=== PATIENT | female | born 1950 | race Caucasian/White ===

== ENCOUNTER → 2017-01-24 | Outpatient (CLI) | payer MEDICARE ==
[2017-01-24 09:34] LABS: HEMOGLOBIN 12.9 gm/dl (12.3-15.3); RED BLOOD COUNT 4.5 M/UL (4.00-5.10); WHITE BLOOD COUNT 6.5 K/UL (4.5-11.0)
[2017-01-24 09:51] LABS: BUN/CREATININE RATIO 24 (0-10)
== END ==
LOC: LAB 09:01
PROVIDERS: Internal Medicine Hematology & Oncology
DX: R91.1 Solitary pulmonary nodule (principal); R97.8 Other abnormal tumor markers; C50.919 Malignant neoplasm of unspecified site of unspecified female breast; Z85.3 Personal history of malignant neoplasm of breast
CPT/HCPCS: 36415; 80053; 85025

== ENCOUNTER → 2017-01-25 | Outpatient (CLI) | payer MEDICARE | LOC: CT 08:48 | DX: R91.1 Solitary pulmonary nodule (principal); R97.8 Other abnormal tumor markers; C50.919 Malignant neoplasm of unspecified site of unspecified female breast; R91.8 Other nonspecific abnormal finding of lung field; Z85.3 Personal history of malignant neoplasm of breast | CPT/HCPCS: 71260; J7050; Q9962 ==

== ENCOUNTER → 2020-09-09 | Outpatient (CLI) | payer MEDICARE ==
[~2020-09-09] MED LIST: AMLODIPINE BESYL5 MG PO; BUSPIRONE HCL15 MG PO; CARVEDILOL12.5 MG PO; DITROPAN XL 5 MG5 MG PO; ESCITALOPRAM OXA5 MG PO; GABAPENTIN300 MG PO; HYDROCODON-ACE1 EAC2 PO; HYDROCODONE-AC1 EAC1 PO; LEVOTHYROXINE100 MC2 PO; LISINOPRIL2.5 MG PO; OMEPRAZOLE20 M1 PO; OXYBUTYNIN CHLOR5 MG PO; SUMATRIPTAN SU100 MG PO; VITAMIN D-40010 MCG PO
[2020-09-09 13:01] LABS: HEMOGLOBIN 14.8 gm/dl (12.3-15.3); RED BLOOD COUNT 5.08 M/UL (4.00-5.10); WHITE BLOOD COUNT 6.2 K/UL (4.5-11.0)
[2020-09-09 13:30] LABS: BUN/CREATININE RATIO 16 (0-10)
== END ==
LOC: OPSV2 11:00
PROVIDERS: Obstetrics & Gynecology
DX: Z01.818 Encounter for other preprocedural examination (principal); N81.9 Female genital prolapse, unspecified
CPT/HCPCS: 71046; 80048; 81001; 85025; 93005

== ENCOUNTER 2020-09-22 06:37 | Observation (INO) | payer MEDICARE, OTHER ==
[~2020-09-22] VITALS: Ht 152.4 cm; Wt 68.0 kg
[2020-09-22] MEDS ORDERED: LISINOPRIL2.5 MG PO (07:25)
[2020-09-22] MEDS ORDERED: LEVOTHYROXINE100 MC2 PO (07:25)
[2020-09-22] MEDS ORDERED: OXYBUTYNIN CHLOR5 MG PO (07:26)
[2020-09-22] MEDS ORDERED: CARVEDILOL12.5 MG PO (07:26)
[2020-09-22] MEDS ORDERED: GABAPENTIN300 MG PO (07:26)
[2020-09-22] MEDS ORDERED: HYDROCODONE-AC1 EAC1 PO (07:26)
[2020-09-22] MEDS ORDERED: AMLODIPINE BESYL5 MG PO (07:27)
[2020-09-22] MEDS ORDERED: BUSPIRONE HCL15 MG PO (07:27)
[2020-09-22] MEDS ORDERED: OMEPRAZOLE20 M1 PO (07:27)
[2020-09-22] MEDS ORDERED: ESCITALOPRAM OXA5 MG PO (07:28)
[2020-09-22] MEDS ORDERED: SUMATRIPTAN SU100 MG PO (07:28)
[2020-09-22 13:30] LABS: HEMOGLOBIN 14.4 gm/dl (12.3-15.3); RED BLOOD COUNT 4.94 M/UL (4.00-5.10); WHITE BLOOD COUNT 18.8 K/UL (4.5-11.0)
[2020-09-22 13:45] LABS: BUN/CREATININE RATIO 20 (0-10)
[2020-09-22] MEDS ORDERED: VITAMIN D-40010 MCG PO (17:19)
[2020-09-22] MEDS ORDERED: DITROPAN XL 5 MG5 MG PO (17:40)
[2020-09-23 05:59] LABS: HEMOGLOBIN 12.9 gm/dl (12.3-15.3); RED BLOOD COUNT 4.42 M/UL (4.00-5.10); WHITE BLOOD COUNT 11.2 K/UL (4.5-11.0)
[2020-09-23 06:22] LABS: BUN/CREATININE RATIO 19 (0-10)
[2020-09-23] MEDS ORDERED: HYDROCODON-ACE1 EAC2 PO (10:46)
== END 2020-09-23 12:16 | disposition home or self-care (01) ==
LOC: OR 06:37 → EDSTATUS 09:00 → PROG CARE 16:30
PROVIDERS: Internal Medicine Infectious Disease; ADMIT Obstetrics & Gynecology
DX: N83.292 Other ovarian cyst, left side (principal); N81.6 Rectocele; G25.70 Drug induced movement disorder, unspecified; T45.0X5A Adverse effect of antiallergic and antiemetic drugs, initial encounter; N87.9 Dysplasia of cervix uteri, unspecified; N72 Inflammatory disease of cervix uteri; N80.0 Endometriosis of uterus; N39.46 Mixed incontinence; I16.0 Hypertensive urgency; E03.9 Hypothyroidism, unspecified; I10 Essential (primary) hypertension; E05.90 Thyrotoxicosis, unspecified without thyrotoxic crisis or storm; F32.9 Major depressive disorder, single episode, unspecified; F41.9 Anxiety disorder, unspecified; E78.5 Hyperlipidemia, unspecified; G89.4 Chronic pain syndrome; K21.9 Gastro-esophageal reflux disease without esophagitis; M81.0 Age-related osteoporosis without current pathological fracture; M19.90 Unspecified osteoarthritis, unspecified site; Y92.238 Other place in hospital as the place of occurrence of the external cause; Z79.82 Long term (current) use of aspirin; Z79.899 Other long term (current) drug therapy
CPT/HCPCS: 36415; 36600; 70450; 80053; 81001; 82140; 82803; 82962; 83735; 84443; 85025; C1769; G0378; J0171; J0690; J1100; J1200; J2001; J2405; J2704; J2710; J2765; J2795; J3010; J7120

== ENCOUNTER → 2021-04-21 | Outpatient (CLI) | payer MEDICARE | LOC: MAMO 03-31 15:30 | DX: Z12.31 Encounter for screening mammogram for malignant neoplasm of breast (principal); R92.1 Mammographic calcification found on diagnostic imaging of breast; C50.919 Malignant neoplasm of unspecified site of unspecified female breast; R91.1 Solitary pulmonary nodule; R97.8 Other abnormal tumor markers; Z90.12 Acquired absence of left breast and nipple | CPT/HCPCS: 77063; 77067 ==

== ENCOUNTER → 2022-04-22 | Outpatient (CLI) | payer MEDICARE | LOC: MAMO 04-14 10:30 | DX: Z12.31 Encounter for screening mammogram for malignant neoplasm of breast (principal); C50.919 Malignant neoplasm of unspecified site of unspecified female breast; R91.1 Solitary pulmonary nodule; R97.8 Other abnormal tumor markers | CPT/HCPCS: 77063; 77067 ==